=== PATIENT | female | born 1990 | race Caucasian/White ===

== ENCOUNTER 2023-01-21 14:03 | Emergency (ER) | payer OTHER ==
[~2023-01-21] VITALS: Ht 162.6 cm; Wt 62.1 kg
[~2023-01-21 14:03] MED LIST: ALBU90OI61 INH; AMOX500 PO; AZIT250 PO; CAPS60T TP; CIPR250 PO; COUGH; DIPH50 PO; HYDACE5 PO; HYDACE5325 PO; HYDCHL25 PO; IBUP400 PO; IBUP600 PO; MUPI2TO TOP; NAPR500 PO; Norco 5-325 Ta1 EACH PO; OXYACE5T PO; PENVK500 PO; PHENA200 PO; PRED20 PO; PROM25 PO; RANI150 PO; RXCLIN PO; RXHYD5325 PO; RXPROM25 PO; TRAM50 PO; [UNRECOGNIZED DRUG - OTHER]
[2023-01-21] MEDS ORDERED: ALBU90OI INH (15:59)
== END 2023-01-21 16:52 | disposition home or self-care (01) ==
LOC: ER 14:03
DX: R06.02 Shortness of breath (principal); F17.290 Nicotine dependence, other tobacco product, uncomplicated; F17.210 Nicotine dependence, cigarettes, uncomplicated
CPT/HCPCS: 71046; 94640; 94664; 99283-25

== ENCOUNTER → 2023-03-31 | Outpatient (CLI) | payer OTHER ==
[~2023-03-31] MED LIST changes: +ALBU90OI INH
[2023-04-06 09:12] LABS: HPV 16 Negative (Negative); HPV 18 Negative (Negative); HPV OTHER HR TYPES Negative (Negative)
== END | disposition home or self-care (01) ==
LOC: LAB 16:00 → LAB SHORT 16:00
PROVIDERS: Registered Nurse Community Health
DX: Z12.4 Encounter for screening for malignant neoplasm of cervix (principal)
CPT/HCPCS: 87624; G0145

== ENCOUNTER → 2023-09-23 | Outpatient (CLI) | payer OTHER ==
[2023-09-26 04:34] LABS: THYROID PEROXIDASE (TPO) AB 1.1 IU/mL (0.0-9.0)
== END ==
LOC: LAB SHORT 17:48 → LAB 17:48
PROVIDERS: Registered Nurse Community Health
DX: E28.2 Polycystic ovarian syndrome (principal)
CPT/HCPCS: 83525; 86376

== ENCOUNTER → 2024-05-08 | Outpatient (CLI) | payer OTHER ==
[2024-05-10 12:39] LABS: C DIFFICILE DNA NEGATIVE (Negative)
[2024-05-13 18:57] LABS: PANCREATIC ELASTASE,FECAL 530 ug/g (>=100)
[2024-05-13 18:59] LABS: CALPROTECTIN,FECAL 17 ug/g (<=49)
== END | disposition home or self-care (01) ==
LOC: LAB 10:22 → LAB SHORT 10:22
PROVIDERS: Nurse Practitioner Family
DX: K59.1 Functional diarrhea (principal)
CPT/HCPCS: 82653; 83993; 87493; 89055

== ENCOUNTER → 2024-08-25 | Outpatient (CLI) | payer OTHER | LOC: LAB SHORT 12:30 → LAB 12:30 | DX: R31.29 Other microscopic hematuria (principal) | CPT/HCPCS: 87086 ==